=== PATIENT | female | born 1960 | race Caucasian/White ===

== ENCOUNTER → 2024-07-11 10:31 | Outpatient (REF) | payer MEDICARE, OTHER, SELFPAY | LOC: RAD 10:31 | PROVIDERS: ATTENDING PHYSICIAN Nurse Practitioner Family | DX: M54.50 Low back pain, unspecified (principal) | CPT/HCPCS: 72110 ==

== ENCOUNTER → 2025-07-19 10:24 | Outpatient (REF) | payer MEDICARE, OTHER, SELFPAY | LOC: WDC 10:24 | PROVIDERS: ATTENDING PHYSICIAN Nurse Practitioner Family | DX: M85.80 Other specified disorders of bone density and structure, unspecified site (principal); M85.88 Other specified disorders of bone density and structure, other site; Z12.31 Encounter for screening mammogram for malignant neoplasm of breast | CPT/HCPCS: 77080 ==